=== PATIENT | male | born 1975 | race African-American/Black ===

== ENCOUNTER 2019-04-04 14:19 | Emergency (ER) | payer OTHER ==
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
[2019-04-04 15:27] LABS: APPEARANCE,URINE CLEAR; BILIRUBIN,URINE NEGATIVE (NEGATIVE); COLOR,URINE YELLOW; GLUCOSE, URINE NEGATIVE (NEGATIVE); KETONES,URINE NEGATIVE (NEGATIVE); LEUKOCYTE ESTERASE,URINE NEGATIVE (NEGATIVE); NITRITE,URINE NEGATIVE (NEGATIVE); PROTEIN,URINE NEGATIVE (NEGATIVE); URINE SPECIFIC GRAVITY 1.017
[2019-04-04 15:43] LABS: URINE AMPHETAMINES SCREEN NEGATIVE; URINE BARBITURATES SCREEN NEGATIVE; URINE BENZODIAZEPINES SCREEN NEGATIVE; URINE COCAINE SCREEN NEGATIVE; URINE MARIJUANA (THC) SCREEN NEGATIVE; URINE METHADONE SCREEN NEGATIVE; URINE PHENCYCLIDINE SCREEN NEGATIVE
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
[2019-04-04] MEDS ORDERED: HYDROCODONE/ACETAMINOPHEN 5-325 MG TABLET PO ONE (18:32)
[2019-04-04 19:33] VITALS: BP 140/84
== END 2019-04-04 19:34 | disposition home or self-care (01) ==
LOC: ER 14:19
DX: S30.1XXA Contusion of abdominal wall, initial encounter (principal); N43.3 Hydrocele, unspecified; R10.30 Lower abdominal pain, unspecified; N50.812 Left testicular pain; R10.32 Left lower quadrant pain; R11.0 Nausea; X58.XXXA Exposure to other specified factors, initial encounter; F17.200 Nicotine dependence, unspecified, uncomplicated
CPT/HCPCS: 76857; 76870; 80307; 81001; 93976; 99284